=== PATIENT | female | born 1985 | race Caucasian/White ===

== ENCOUNTER 2018-05-24 05:03 | Emergency (ER) | payer BC, OTHER ==
[2018-05-24] MEDS ORDERED: METOCLOPRAMIDE HCL INJ/PF 10 MG/2 ML SDV IV ONE (05:22)
[2018-05-24] MEDS ORDERED: KETOROLAC TROMETHAMINE INJ/PF 30 MG/1 ML SDV IV ONE (05:22)
--- NOTE | 2018-05-24 05:23 | ER Document Report ---
ED Medical Screen (RME) - General Chief Complaint: Flank Pain Stated Complaint: FLANK PAIN Time Seen by Provider: 05/24/18 05:18 Notes: 32-year-old female with chief complaint of dysuria for the past 3 days, now she has developed pain in her left flank that is sharp and causing her nausea. She denies vomiting, fever, history of kidney stones. TRAVEL OUTSIDE OF THE [place] IN LAST 30 DAYS: No - Related Data Allergies/Adverse Reactions: amoxicillin Allergy (Verified 05/24/18 05:06) codeine Allergy (Verified 05/24/18 05:06) Past Medical History Renal/ Medical History: Denies: Hx Peritoneal Dialysis Past Surgical History: Reports: Hx Section, Hx Gynecologic Surgery - Uterine ablation Physical Exam - Vital signs Vitals: Temp Pulse Resp BP Pulse Ox 97.4 F 88 20 137/88 H 97 05/24/18 05:06 05/24/18 05:06 05/24/18 05:06 05/24/18 05:06 05/24/18 05:06 - Abdominal Inspection: Normal Tenderness: Nontender. No: Tender, Guarding - Back Back: Tender - Left CVA tenderness, right unremarkable Course - Vital Signs Vital signs: Temp Pulse Resp BP Pulse Ox 97.4 F 88 20 137/88 H 97 05/24/18 05:06 05/24/18 05:06 05/24/18 05:06 05/24/18 05:06 05/24/18 05:06 Doctor's Discharge - Discharge Referrals: MANUEL POTTER NP [Primary Care Provider] - Follow up as needed
[2018-05-24 05:55] LABS: ABSOLUTE BASOPHILS # (AUTO) 0.1 10^3/uL (0.0-0.2); ABSOLUTE EOSINOPHILS # (AUTO) 0.4 10^3/uL (0.0-0.6); ABSOLUTE LYMPHOCYTES (AUTO) 2.4 10^3/uL (0.5-4.7); ABSOLUTE MONOCYTES (AUTO) 0.7 10^3/uL (0.1-1.4); ABSOLUTE NEUT (AUTO) 5.5 10^3/uL (1.7-8.2); BASOPHILS % (AUTO) 0.7 % (0-2); EOSINOPHILS % (AUTO) 4.6 % (0-6); HEMATOCRIT 41.9 % (36.0-47.0); HEMOGLOBIN 14.3 g/dL (12.0-15.5); LYMPHOCYTES % (AUTO) 26.9 % (13-45); MEAN CORPUSCULAR HEMOGLOBIN 28.1 pg (27.0-33.4); MEAN CORPUSCULAR HGB CONC 34.1 g/dL (32.0-36.0); MEAN CORPUSCULAR VOLUME 82 fl (80-97); MONOCYTES % (AUTO) 7.4 % (3-13); PLATELET COUNT 173 10^3/uL (150-450); RED BLOOD COUNT 5.08 10^6/uL (3.72-5.28); RED CELL DISTRIBUTION WIDTH 13.3 % (11.5-14.0); SEGMENTED NEUTROPHILS % (AUTO) 60.4 % (42-78); TOTAL CELLS COUNTED % (AUTO) 100 %; WHITE BLOOD COUNT 9.1 10^3/uL (4.0-10.5)
[2018-05-24 06:05] LABS: APPEARANCE,URINE CLEAR; BILIRUBIN,URINE NEGATIVE (NEGATIVE); GLUCOSE, URINE NEGATIVE (NEGATIVE); KETONES,URINE NEGATIVE (NEGATIVE); LEUKOCYTE ESTERASE,URINE NEGATIVE (NEGATIVE); NITRITE,URINE POSITIVE (NEGATIVE); PROTEIN,URINE NEGATIVE (NEGATIVE); URINE SPECIFIC GRAVITY 1.016
[2018-05-24 06:06] LABS: COLOR,URINE DARK YELLOW
[2018-05-24 06:11] LABS: ALANINE AMINOTRANSFERASE 38 U/L (9-52); ALBUMIN 4.1 g/dL (3.5-5.0); ALKALINE PHOSPHATASE 72 U/L (38-126); ANION GAP 11 (5-19); ASPARTATE AMINO TRANSFERASE 28 U/L (14-36); BILIRUBIN,TOTAL 0.6 mg/dL (0.2-1.3); BLOOD UREA NITROGEN 13 mg/dL (7-20); CALCIUM 9.1 mg/dL (8.4-10.2); CARBON DIOXIDE 26 mmol/L (22-30); CHLORIDE 108 mmol/L (98-107); GLUCOSE 117 mg/dL (75-110); TOTAL PROTEIN 6.9 g/dL (6.3-8.2)
--- NOTE | 2018-05-24 06:20 | ER Document Report ---
ED General - General Chief Complaint: Flank Pain Stated Complaint: FLANK PAIN Time Seen by Provider: 05/24/18 05:18 Mode of Arrival: Ambulatory Information source: Patient Notes: 32-year-old female presents emergency department with complaints of left flank pain. Patient states that she initially had dysuria 3 days ago. She contacted [facility] and was told that they would call her in an antibiotic for suspected urinary tract infection. Patient states that she filled the Macrobid yesterday. She has had one dose of the medication. She states that this morning she began having left flank pain with radiation into the left lower quadrant. She describes it as a sharp and stabbing sensation. She denies any alleviating or exacerbating factors. She denies any surgeries on her abdomen. No prior history of kidney stones. Patient states that she has had an ablation done. TRAVEL OUTSIDE OF THE [place] IN LAST 30 DAYS: No - HPI Onset: Other - 3 days Onset/Duration: Sudden Quality of pain: Sharp, Stabbing, Throbbing Associated symptoms: None Exacerbated by: Denies Relieved by: Denies Similar symptoms previously: No Recently seen / treated by doctor: No - Related Data Allergies/Adverse Reactions: amoxicillin Allergy (Verified 05/24/18 05:06) codeine Allergy (Verified 05/24/18 05:06) Past Medical History - General Information source: Patient - Social History Smoking Status: Never Smoker Family History: Reviewed & Not Pertinent Patient has suicidal ideation: No Patient has homicidal ideation: No Renal/ Medical History: Denies: Hx Peritoneal Dialysis Past Surgical History: Reports: Hx Section, Hx Gynecologic Surgery - Uterine ablation Review of Systems - Review of Systems Constitutional: No symptoms reported EENT: No symptoms reported Cardiovascular: No symptoms reported Respiratory: No symptoms reported Gastrointestinal: Other - flank pain Genitourinary: Dysuria, Frequency, Urgency Female Genitourinary: No symptoms reported Musculoskeletal: No symptoms reported Skin: No symptoms reported Hematologic/Lymphatic: No symptoms reported Neurological/Psychological: No symptoms reported -: Yes All other systems reviewed and negative Physical Exam - Vital signs Vitals: Temp Pulse Resp BP Pulse Ox 97.4 F 88 20 137/88 H 97 05/24/18 05:06 05/24/18 05:06 05/24/18 05:06 05/24/18 05:06 05/24/18 05:06 Interpretation: Normal - Notes Notes: PHYSICAL EXAMINATION: GENERAL: Well-appearing, well-nourished and in no acute distress. HEAD: Atraumatic, normocephalic. EYES: Pupils equal round and reactive to light, extraocular movements intact, conjunctiva are normal. ENT: Nares patent, oropharynx clear without exudates. Moist mucous membranes. NECK: Normal range of motion, supple without lymphadenopathy LUNGS: Breath sounds clear to auscultation bilaterally and equal. No wheezes rales or rhonchi. HEART: Regular rate and rhythm without murmurs ABDOMEN: Soft, nontender, nondistended abdomen. No guarding, no rebound. No masses appreciated. L flank tenderness to palpation. +CVA tenderness Female : deferred Musculoskeletal: Normal range of motion, no pitting or edema. No cyanosis. NEUROLOGICAL: Cranial nerves grossly intact. Normal speech, normal gait. Normal sensory, motor exams PSYCH: Normal mood, normal affect. SKIN: Warm, Dry, normal turgor, no rashes or lesions noted. Course - Re-evaluation Re-evalutation: 05/24/18 08:46 Labs are unremarkable. Urinalysis shows possible contaminated specimen versus actual urinary tract infection. Patient is currently on Macrobid for a urinary tract infection. CT of the abdomen and pelvis was done. Mild left hydronephrosis and hydroureter is seen. The radiologist notes the bladder is decompressed but there is a mass along the left lateral bladder wall measuring 3.4 x 3cm near the Left ureteral opening. Radiologist is concerned about bladder tumor. I discussed results with the patient. I will discharge home with pain medication, nausea medication, and follow up with urology for further workup. Patient is agreeable with the plan of care. 05/24/18 08:55 Patient's allergy to codeine is a rash. Says that she had a "leathery" rash when took tylenol with codeine previously. No airway involvement. - Vital Signs Vital signs: Temp Pulse Resp BP Pulse Ox 97.4 F 88 20 137/88 H 97 05/24/18 05:06 05/24/18 05:06 05/24/18 05:06 05/24/18 05:06 05/24/18 05:06 - Laboratory Result Diagrams: 05/24/18 05:41 05/24/18 05:41 Laboratory results interpreted by me: 05/24/18 05/24/18 05:41 05:41 Chloride 108 H Glucose 117 H Urine Nitrite POSITIVE H Urine Urobilinogen 4.0 H Discharge - Discharge Clinical Impression: Bladder mass Condition: Stable Disposition: HOME, SELF-CARE Instructions: Urinary Tract Infection ([facility]) Additional Instructions: There was a bladder mass seen on your CT. I will refer you to a urologist to further evaluate the mass. Please follow up with urology this week, continue taking medication as directed, and return for worsening symptoms. Prescriptions: Ondansetron [Zofran Odt 4 mg Tablet] 1 - 2 tab PO Q4H PRN #15 tab.rapdis PRN Reason: For Nausea/Vomiting Oxycodone HCl/Acetaminophen [Percocet 5-325 mg Tablet] 1 tab PO Q6 PRN #15 tablet PRN Reason: Referrals: MANUEL POTTER NP [NURSE PRACTITIONER] - Follow up as needed BRIE BALDERAS DO [INDERJIT PENNY] - Follow up as needed MARIA E BAIG MD [INDERJIT PENNY] - Follow up as needed
--- NOTE | 2018-05-24 08:12 | RADIOLOGY REPORT (SQ) ---
EXAM DESCRIPTION: CT ABD/PELVIS NO ORAL OR IV COMPLETED DATE/TIME: 05/24/2018 7:25 am REASON FOR STUDY: L flank pain- stone COMPARISON: Abdominal ultrasound 07/11/2016 TECHNIQUE: CT scan of the abdomen and pelvis performed without intravenous or oral contrast. Images reviewed with lung, soft tissue, and bone windows. Reconstructed coronal and sagittal MPR images revi ewed. All images stored on PACS. All CT scanners at this facility use dose modulation, iterative reconstruction, and/or weight based d osing when appropriate to reduce radiation dose to as low as reasonably achievable (ALARA). [facility]: Dose Right [facility]: CareDose [facility]: Dose Right [facility]: Teradose 4D [facility]: [employer] RADIATION DOSE: CT Rad equipment meets quality standard of care and radiation dose reduction techniq ues were employed. CTDIvol: 15.2 mGy. DLP: 905 mGy-cm.mGy. LIMITATIONS: None. FINDINGS: There is mild left hydronephrosis and hydroureter down to the ureterovesical junction. Th e bladder is decompressed, however there is a the mass along the left lateral bladder wall measuring at least 3.4 x 3 cm in size near the left ureteral opening into the bladder. Findings are worrisome for bladder tumor. Ureterocele with debris is possible. These findings were called to Dr Nolasco 0755 hours 05/24/2018. Left kidney is normal in size. No left renal cysts. No gross left renal masses. LOWER CHEST: No significant findings. No nodules or infiltrates. NON-CONTRASTED LIVER, SPLEEN, ADRENALS: Evaluation limited by lack of IV contrast. No identified sign ificant masses. PANCREAS: No masses. No peripancreatic inflammatory changes. GALLBLADDER: No identified stones by CT criteria. No inflammatory changes to suggest cholecystitis. RIGHT KIDNEY AND URETER: No suspicious masses. Assessment limited by lack of IV contrast. No signif icant calcifications. No hydronephrosis or hydroureter. LEFT KIDNEY AND URETER: As above AORTA AND RETROPERITONEUM: No aneurysm. No retroperitoneal masses or adenopathy. BOWEL AND PERITONEAL CAVITY: No obvious masses or inflammatory changes. No free fluid. APPENDIX: Normal. PELVIS, BLADDER, AND ABDOMINAL WALL:No abnormal masses. No free fluid. Bladder normal. BONES: No significant findings. OTHER: No other significant finding. IMPRESSION: No urinary stones. Left-sided hydronephrosis and hydroureter down to the ureterovesical junction. Abnormal left bladder on this non contrasted study, worrisome for bladder tumor or mass. Report called to the emergency r oom attending physician COMMENT: Quality ID # [id number]: Final reports with documentation of one or more dose reduction techniques (e.g., Automated exposure control, adjustment of the mA and/or kV according to patient size, use of iterative reconstruction technique) TECHNICAL DOCUMENTATION: JOB ID: [id number] [employer]- All Rights Reserved Reading location - IP/workstation name: [email or web address] [id number]
[2018-05-24 09:15] VITALS: BP 116/83
== END 2018-05-24 09:16 | disposition home or self-care (01) ==
LOC: ER 05:03
DX: N32.9 Bladder disorder, unspecified (principal); R10.9 Unspecified abdominal pain; R30.0 Dysuria; R10.32 Left lower quadrant pain; R35.0 Frequency of micturition; R39.15 Urgency of urination
CPT/HCPCS: 99284; 96374; 96375; 36415; 85025; 81025; 80053; 81001; 74176; J1885; J2765

== ENCOUNTER 2018-05-30 14:23 | Day surgery (SDC) | payer OTHER ==
[~2018-05-30 14:23] MED LIST: CIPROFLOXACIN 400 MG/D5W RTU 400 MG/200 ML RTUPB IV PRN; GLYCOPYRROLATE 1 MG/5 ML SYRINGE ONE; NEOSTIGMINE METHYLSULFATE 10 MG/10 ML VIAL ONE; SUCCINYLCHOLINE CHLORIDE INJ 200 MG/10 ML VIAL ONE; VECURONIUM BROMIDE INJ 10 MG VIAL IV ONE
[2018-05-30] MEDS ORDERED: ONDANSETRON 4 MG TAB.RAPDIS ONE (15:25)
[2018-05-30] MEDS ORDERED: MORPHINE SULFATE 10 MG/ML INJ IV PRN (16:50)
[2018-05-30] MEDS ORDERED: MEPERIDINE HCL/PF INJ 25 MG/1 ML DISP.SYRIN IV PRN (16:50)
[2018-05-30] MEDS ORDERED: PROMETHAZINE HCL INJ 25 MG/1 ML VIAL IV PRN ×2 (16:50)
[2018-05-30] MEDS ORDERED: DIPHENHYDRAMINE HCL 50 MG/ML VIAL IV PRN (16:50)
[2018-05-30] MEDS ORDERED: ONDANSETRON HCL INJ/PF 4 MG/2 ML SDV IV PRN (16:50)
[2018-05-30] MEDS ORDERED: FENTANYL CITRATE INJ/PF 100 MCG/2 ML AMPUL IV PRN ×3 (16:50)
[2018-05-30] MEDS ORDERED: DEXAMETHASONE SOD PHOSPHATE INJ 4 MG/1 ML VIAL ONE (16:54)
[2018-05-30] MEDS ORDERED: MIDAZOLAM 2 MG/2 ML INJ ONE (16:54)
[2018-05-30] MEDS ORDERED: FENTANYL CITRATE INJ/PF 100 MCG/2 ML AMPUL ONE (16:54)
[2018-05-30] MEDS ORDERED: LIDOCAINE 2% INJ-PF (20 MG/ML) 10 ML AMPUL ONE (16:54)
[2018-05-30] MEDS ORDERED: ONDANSETRON HCL INJ/PF 4 MG/2 ML SDV ONE (16:55)
[2018-05-30] MEDS ORDERED: PROPOFOL INJ 200 MG/20 ML VIAL IV ONE (16:55)
[2018-05-30] MEDS ORDERED: ACETAMINOPHEN 1,000 MG/100 ML RTUPB IV ONE (16:55)
[2018-05-30] MEDS ORDERED: METHYLENE BLUE 50 MG/10 ML AMPULE ONE (17:36)
[2018-05-30] MEDS ORDERED: ACETAMINOPHEN 325 MG TABLET PO PRN (18:37)
[2018-05-30] MEDS ORDERED: OXYBUTYNIN CHLORIDE 5 MG TABLET PO PRN (18:45)
[2018-05-30] MEDS ORDERED: KETOROLAC TROMETHAMINE INJ/PF 30 MG/1 ML SDV IV PRN (18:45)
[2018-05-30] MEDS ORDERED: OXYCODONE-ACETAMINOPHEN 5-325 MG TABLET PO PRN (18:45)
--- NOTE | 2018-05-30 19:31 | OPERATIVE REPORT E ---
Operative Report NAME: VIKA COWART : 1985 AGE: 32Y DATE OF SURGERY: 05/30/2018 ROOM: PREOPERATIVE DIAGNOSIS: BLADDER TUMOR. POSTOPERATIVE DIAGNOSIS: BLADDER TUMOR. OPERATION: Cysto, TURBT, large (5 x 5 cm trigone and left lateral wall). SURGEON: MARIA E BAIG M.D. SUPERINTENDENT CUSTODIAN JANITOR: None. SPECIMENS: Bladder tumor. COMPLICATIONS: None. INDICATIONS: The patient is a 32-year-old lady who had back pain last week, and had a CT scan that showed a 3.5 cm tumor on the left side of her bladder. Various options for treatment as well as risks and benefits were discussed. Potential complications that were discussed regarding a TURBT included but were not limited to bleeding, infection, failure to cure the problem, need for additional surgery, perforation of the bladder. The patient appeared to understand the various options for treatment as well as the risks and benefits, and wished to proceed with the proposed surgery. PROCEDURE: After the patient was identified in the preoperative holding area, she was brought to the operating room. Timeout was performed and the correct patient and procedure were confirmed. She was then given general endotracheal anesthesia. She was next carefully positioned in the dorsal lithotomy position. All pressure points were padded. Next, she was prepped and draped in routine sterile manner. I performed a bimanual pelvic examination. The mass was clearly palpable through the vagina, but did not arise from the vagina and there was no evidence of fixation. The uterus and cervix appeared normal to bimanual exam. A #23 obturator and sheath was inserted. The bladder was carefully examined with a panendoscope as was the urethra. There was a mass that was bulging and lifting the left hemitrigone and ureteral orifice that extended from the left bladder wall to the mid trigone from the posterior bladder wall to the trigone, and estimated to be 5 x 5 cm in size. Left retrograde: An open-ended catheter was positioned at the left ureteral orifice. Contrast was instilled. There was J-hooking of the distal left ureter, but no intrinsic defects within the lumen of the ureter. There was mild dilation of the upper tracts. Impression: mild hydroureteronephrosis secondary to bladder mass. An open-ended catheter was inserted over a guidewire in the left ureteral orifice to identify its location. Cysto TURBT large: Following this, a 24 resectoscope, obturator and sheath was inserted per urethra into the bladder. A resectoscope was then used to resect the major portion of the mass. I was unable to achieve a clean resection at the base because it appreared that the tumor was deeply infiltrative. I did not attempt to resect the tumor immediately adjacent to the left ureter. The periphery of the resection was cauterized. Insertion of 24 cm x 6-Northern Irish double-J catheter: A guidewire was threaded through the open-ended catheter after which a 24 cm x 6-Northern Irish double-J catheter was threaded over the guidewire and curled in the kidney with the distal end curling in the bladder. This was done under fluoroscopic guidance. The patient was returned to the recovery room, having tolerated this procedure well. PLAN: I will wait for the pathology to come back. If there isn't muscle in the specimen, she will require repeat resection. 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 I discussed this with her family and I will refer her to a government camp for this. DICTATING PHYSICIAN: MARIA E BAIG M.D. [id number] PHY#: [id number] ID: [id number] JOB#: [id number] ACCT: [id number] cc:MARIA E BAIG M.D. > MTDD
--- NOTE | 2018-05-30 21:10 | RADIOLOGY REPORT (SQ) ---
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 FLUOROSCOPY TIME: 27 seconds 1 images saved to PACS. TECHNIQUE: Intra-operative images acquired during surgical procedure to evaluate progress. NUMBER OF IMAGES: 1 LIMITATIONS: None. FINDINGS: A single image obtained from fluoro shows contrast in the left renal collecting system and ureter. A total of 7 cc contrast was used. IMPRESSION: Retrograde pyelogram. Refer to operative note for further information. COMMENT: Quality ID [id number]: Final reports for procedures using fluoroscopy that document radiation exp osure indices, or exposure time and number of fluorographic images (if radiation exposure indices are not available) Please consult full operative report of the attending physician for description of the procedure. TECHNICAL DOCUMENTATION: JOB ID: [id number] [employer]- All Rights Reserved Reading location - IP/workstation name: [email or web address]
[2018-05-30 21:24] VITALS: BP 145/80
--- NOTE | 2018-05-30 21:33 | RADIOLOGY REPORT (SQ) ---
EXAM DESCRIPTION: KUB/ABDOMEN (SINGLE VIEW) COMPLETED DATE/TIME: 05/30/2018 6:21 pm REASON FOR STUDY: LT RETROGRADE INSERTION OF LT URETERAL STENT D49.4 NEOPLASM OF UNSPECIFIED BEHAVI OR OF BLADDER COMPARISON: None. NUMBER OF VIEWS: One view. TECHNIQUE: Supine radiographic image of the abdomen acquired. LIMITATIONS: None. FINDINGS: A single image obtained fluoro shows contrast in left renal collecting system and ureter. IMPRESSION: Retrograde ureteral stent insertion. Refer to operative note for further information. TECHNICAL DOCUMENTATION: JOB ID: [id number] [employer]- All Rights Reserved Reading location - IP/workstation name: [email or web address]
== END 2018-05-30 21:43 | disposition home or self-care (01) ==
LOC: OROUT 14:23 → 2S 19:20 → OROUT 21:43
PROVIDERS: ATTEND Urology
PROC: 0TBB8ZX Excision of Bladder, Via Natural or Artificial Opening Endoscopic, Diagnostic (ICD-10-PCS; principal; 2018-05-30 16:30)
DX: D30.3 Benign neoplasm of bladder (principal); N13.0 Hydronephrosis with ureteropelvic junction obstruction
CPT/HCPCS: 81025; 88342 ×2; 88341 ×2; 88305 ×2; 74018; 74420; 52240; C1769 ×2; C1758; C2617; J2250; J1100; S0119; J3010; J3490 ×3; J0330; J2405; J2704; J0744; J0131; Q9968; 912

== ENCOUNTER → 2019-12-13 | Outpatient (CLI) | payer OTHER ==
[2019-12-13 13:37] LABS: ABSOLUTE BASOPHILS # (AUTO) 0.1 10^3/uL (0.0-0.2); ABSOLUTE EOSINOPHILS # (AUTO) 0.3 10^3/uL (0.0-0.6); ABSOLUTE LYMPHOCYTES (AUTO) 2.5 10^3/uL (0.5-4.7); ABSOLUTE MONOCYTES (AUTO) 0.6 10^3/uL (0.1-1.4); ABSOLUTE NEUT (AUTO) 4.2 10^3/uL (1.7-8.2); BASOPHILS % (AUTO) 0.9 % (0-2); EOSINOPHILS % (AUTO) 3.5 % (0-6); HEMOGLOBIN 14.2 g/dL (12.0-15.5); LYMPHOCYTES % (AUTO) 32.3 % (13-45); MEAN CORPUSCULAR HEMOGLOBIN 28.2 pg (27.0-33.4); MEAN CORPUSCULAR HGB CONC 33.9 g/dL (32.0-36.0); MEAN CORPUSCULAR VOLUME 83 fl (80-97); MONOCYTES % (AUTO) 8.4 % (3-13); PLATELET COUNT 184 10^3/uL (150-450); RED BLOOD COUNT 5.05 10^6/uL (3.72-5.28); RED CELL DISTRIBUTION WIDTH 13.7 % (11.5-14.0); SEGMENTED NEUTROPHILS % (AUTO) 54.9 % (42-78); TOTAL CELLS COUNTED % (AUTO) 100 %; WHITE BLOOD COUNT 7.6 10^3/uL (4.0-10.5)
--- NOTE | 2019-12-13 14:02 | RADIOLOGY REPORT (SQ) ---
EXAM DESCRIPTION: CHEST PA/LATERAL COMPLETED DATE/TIME: 12/13/2019 1:27 pm REASON FOR STUDY: MORBID (SEVERE) OBESITY DUE TO EXCESS CALORIES COMPARISON: None. EXAM PARAMETERS: NUMBER OF VIEWS: two views TECHNIQUE: Digital Frontal and Lateral radiographic views of the chest acquired. RADIATION DOSE: NA LIMITATIONS: none FINDINGS: LUNGS AND PLEURA: No opacities, masses or pneumothorax. No pleural effusion. MEDIASTINUM AND HILAR STRUCTURES: No masses or contour abnormalities. HEART AND VASCULAR STRUCTURES: Heart normal size. No evidence for failure. BONES: No acute findings. HARDWARE: None in the chest. OTHER: No other significant finding. IMPRESSION: NO SIGNIFICANT RADIOGRAPHIC FINDING IN THE CHEST. TECHNICAL DOCUMENTATION: JOB ID: [id number] [employer]- All Rights Reserved Reading location - IP/workstation name: [email or web address]
[2019-12-13 14:07] LABS: ANION GAP 8 (5-19); BLOOD UREA NITROGEN 9 mg/dL (7-20); CALCIUM 9.4 mg/dL (8.4-10.2); CARBON DIOXIDE 26 mmol/L (22-30); CHLORIDE 104 mmol/L (98-107); GLUCOSE 83 mg/dL (75-110); POTASSIUM 4.1 mmol/L (3.6-5.0)
--- NOTE | 2019-12-13 17:49 | EKG REPORT ---
SEVERITY:- BORDERLINE ECG - SINUS RHYTHM PROBABLE LEFT ATRIAL ABNORMALITY : Confirmed by: Fan Goel MD 13-Dec-2019 17:47:59
== END ==
LOC: OD 13:06
PROVIDERS: ATTEND Surgery
DX: E66.01 Morbid (severe) obesity due to excess calories (principal)
CPT/HCPCS: 36415; 71046; 80048; 84443; 85025; 93005; 93010